=== PATIENT | female | born 1960 | race American Indian/Alaskan Native ===

== ENCOUNTER 2017-08-07 09:43 | Emergency (ER) | payer SELFPAY ==
[2017-08-07 10:51] LABS: Basophils % (Auto) 0.8 % (0.0-1.8); Eosinophils % (Auto) 2.2 % (0.0-4.3); Hematocrit 32.7 % (30.3-42.9); Hemoglobin 10.9 gm/dl (10.1-14.3); Mean Corpuscular HGB Conc 33 % (30-34); Mean Corpuscular Hemoglobin 33 pg (28-32); Mean Corpuscular Volume 99 fl (79-97); Platelet Count 294 K/mm3 (140-440); Red Blood Count 3.29 M/mm3 (3.65-5.03); Red Cell Distribution Width 14.1 % (13.2-15.2); White Blood Count 4.3 K/mm3 (4.5-11.0)
[2017-08-07 11:07] LABS: Alanine Aminotransferase 12 units/L (7-56); Albumin 4.1 g/dL (3.9-5); Albumin/Globulin Ratio 1.5 %; Alkaline Phosphatase 56 units/L (35-129); Anion Gap 18 mmol/L; BUN/Creatinine Ratio 26; Blood Urea Nitrogen 13 mg/dL (7-17); Calcium 8.7 mg/dL (8.4-10.2); Carbon Dioxide 28 mmol/L (22-30); Glucose 91 mg/dL (65-100); Lipase 22 units/L (13-60); Potassium 4.6 mmol/L (3.6-5.0); Sodium 142 mmol/L (137-145); Total Protein 6.9 g/dL (6.3-8.2)
[2017-08-07 11:36] LABS: Bilirubin,Urine NEG (Negative); Blood,Urine LG (Negative); Ketones,Urine NEG (Negative); Leukocyte Esterase,Urine NEG (Negative); Nitrite,Urine NEG (Negative); Urobilinogen,Urine < 2.0 mg/dL (<2.0)
[2017-08-07 11:54] LABS: RBC,Urine > 182.0 /HPF (0.0-6.0); WBC,Urine > 182.0 /HPF (0.0-6.0)
--- NOTE | 2017-08-07 20:24 | Emergency Department Report ---
ED Abdominal Pain HPI - General Chief Complaint: Urogenital-Female Stated Complaint: BLOOD IN URINE Time Seen by Provider: 08/07/17 20:10 Source: patient Mode of arrival: Ambulatory Limitations: No Limitations - History of Present Illness Initial Comments: Patient is 57 years old female history of breast cancer and colon cancer postradiation came today was lower abdominal pain started last night with hematuria and dysuria. Patient denied any fever no nausea no vomiting. She no about her. Rectal mass and she is along with an oncologist. MD Complaint: abdominal pain -: Last night Location: suprapubic Severity scale (0 -10): 0 Improves With: nothing Worsens With: nothing Associated Symptoms: dysuria - Related Data Previous Rx's Medication Instructions Recorded Last Taken Type HYDROcodone/APAP 5-325 [Hunter 1 each PO Q6HR PRN #30 tablet 10/26/15 Unknown Rx 5/325] Allergies Allergy/AdvReac Type Severity Reaction Status Date / Time No Known Allergies Allergy Verified 09/07/15 16:14 ED Review of Systems ROS: Stated complaint: BLOOD IN URINE Other details as noted in HPI Comment: All other systems reviewed and negative Constitutional: denies: chills, fever Respiratory: denies: cough, orthopnea, shortness of breath, SOB with exertion Cardiovascular: denies: chest pain, palpitations, orthopnea, edema Gastrointestinal: abdominal pain. denies: nausea, vomiting, diarrhea, constipation, hematemesis, melena, hematochezia Genitourinary: urgency, dysuria, frequency, hematuria Skin: denies: rash, lesions Neurological: denies: headache, weakness, numbness, paresthesias, confusion, abnormal gait ED Past Medical Hx - Past Medical History Previous Medical History?: Yes Hx Hypertension: No Hx Liver Disease: No Hx Renal Disease: No Hx of Cancer: Yes (breast, cancer) Hx Seizures: No Hx Asthma: No Hx HIV: No Additional medical history: Radiation therapy to the colon - Surgical History Past Surgical History?: Yes Hx Breast Surgery: Yes (LEFT BREAST BX 07/2015) - Social History Smoking Status: Former Smoker Substance Use Type: Alcohol, Prescribed - Medications Home Medications: Home Medications Medication Instructions Recorded Confirmed Last Taken Type HYDROcodone/APAP 5-325 [H[place] 1 each PO Q6HR PRN #30 tablet 10/26/15 Unknown Rx 5/325] ED Physical Exam - General Limitations: No Limitations General appearance: alert, in no apparent distress - Head Head exam: Present: normocephalic - Eye Eye exam: Present: normal appearance - ENT ENT exam: Present: normal exam, normal orophraynx, mucous membranes moist - Neck Neck exam: Present: normal inspection - Respiratory Respiratory exam: Present: normal lung sounds bilaterally. Absent: respiratory distress, wheezes, rales, rhonchi - Cardiovascular Cardiovascular Exam: Present: regular rate, normal rhythm, normal heart sounds - GI/Abdominal GI/Abdominal exam: Present: soft, tenderness (S), normal bowel sounds. Absent: distended (suprapubic tenderness), guarding, rebound, rigid, mass, bruit, pulsatile mass, hernia - Back Exam Back exam: Present: normal inspection. Absent: CVA tenderness (R), CVA tenderness (L) - Neurological Exam Neurological exam: Present: alert, oriented X3, CN II-XII intact, normal gait - Skin Skin exam: Present: warm, intact, normal color ED Course Vital Signs 08/07/17 08/07/17 08/07/17 10:22 16:57 17:01 Temperature 98.1 F Pulse Rate 81 Respiratory 16 Rate Blood Pressure 148/78 Blood Pressure [Left] O2 Sat by Pulse 100 100 99 Oximetry 08/07/17 08/07/17 08/07/17 17:10 17:15 17:28 Temperature 98.5 F Pulse Rate 103 H 73 Respiratory 9 L 13 9 L Rate Blood Pressure 153/88 Blood Pressure 148/74 [Left] O2 Sat by Pulse 100 99 100 Oximetry 08/07/17 08/07/17 08/07/17 17:30 17:45 18:00 Temperature Pulse Rate 75 75 75 Respiratory 16 13 14 Rate Blood Pressure 128/72 136/70 138/76 Blood Pressure [Left] O2 Sat by Pulse 100 100 100 Oximetry 08/07/17 08/07/17 08/07/17 18:15 18:30 18:45 Temperature Pulse Rate 73 82 78 Respiratory 11 L 14 17 Rate Blood Pressure 139/73 145/80 155/84 Blood Pressure [Left] O2 Sat by Pulse 100 100 100 Oximetry 08/07/17 19:05 Temperature Pulse Rate 78 Respiratory Rate Blood Pressure 132/76 Blood Pressure [Left] O2 Sat by Pulse 99 Oximetry - Reevaluation(s) Reevaluation #1: 08/07/17 20:24 Patient remained stable in the ER is no acute event signs stable. ED Medical Decision Making - Lab Data Result diagrams: 08/07/17 10:30 08/07/17 10:30 - Radiology Data Radiology results: report reviewed CT abdomen and pelvis showed a 5 cm perirectal mass and left inguinal adenopathy concerning for a neoplastic process. - Medical Decision Making Patient already know about her perirectal mass and she is following with an oncologist. Critical care attestation.: If time is entered above; I have spent that time in minutes in the direct care of this critically ill patient, excluding procedure time. ED Disposition Clinical Impression: Abdominal pain, UTI (urinary tract infection) Disposition: - TO HOME OR SELFCARE Is pt being admited?: No Condition: Stable Instructions: Abdominal Pain (ED), Urinary Tract Infection in Women (ED) Referrals: PRIMARY CARE, [Primary Care Provider] - 3-5 Days Forms: Work/School Release Form(ED)
[2017-08-07 20:28] VITALS: BP 166/90
[2017-08-07] MEDS ORDERED: CATAPRES PO ONE (20:28)
== END 2017-08-07 20:35 | disposition home or self-care (01) ==
LOC: ED 09:43
DX: N39.0 Urinary tract infection, site not specified (principal); Z87.891 Personal history of nicotine dependence
CPT/HCPCS: 36415; 80053; 81001; 83690; 85025; 99283